=== PATIENT | male | born 1990 | race Two or more races ===

== ENCOUNTER 2020-02-26 14:47 | Outpatient (REF) | payer OTHER, SELFPAY | END 2020-02-26 14:48 | disposition home or self-care (01) | LOC: HO.LAB 14:47 | PROVIDERS: Visit Provider Internal Medicine | DX: Z20.828 Contact with and (suspected) exposure to other viral communicable diseases (principal) | CPT/HCPCS: C9803; U0003 ==

== ENCOUNTER 2020-08-03 16:48 | Outpatient (REF) | payer OTHER, SELFPAY ==
[2020-08-03 17:56] LABS: Hematocrit 42.9 % (42-52); Hemoglobin 14.4 g/dl (14.0-18.0); Mean Corpuscular HGB Conc 33.6 g/dl (31.0-36.0); Mean Corpuscular Hemoglobin 29.1 pg (27.0-33.0); Mean Corpuscular Volume 86.7 fL (80-98); Mean Platelet Volume 9.9 fL (9.4-12.4); Platelet Count 195 X10*3/uL (160-400); Red Blood Count 4.95 X10*6/uL (4.60-5.80); Red Cell Distribution Width 12.5 % (11.0-16.0); White Blood Count 7.2 X10*3/uL (4.8-10.8)
[2020-08-03 18:13] LABS: Alanine Aminotransferase 42 U/L (0-40); Albumin Level 4.3 g/dL (3.5-5.0); Alkaline Phosphatase 69 U/L (39-117); Anion Gap 11 (12-20); Aspartate Amino Transferase 28 U/L (5-37); Bilirubin Direct < 0.2 mg/dL (0.0-0.5); Bilirubin Total 0.5 mg/dL (0.0-1.0); Blood Urea Nitrogen 14 mg/dL (9-16); Calcium 9.5 mg/dL (8.4-10.2); Carbon Dioxide 29 mmol/L (22-29); Chloride 104 mmol/L (96-108); Cholesterol 172 mg/dL; Estimated Glomerular Filt Rate > 60; Glucose Random 71 mg/dL (60-115); HDL Cholesterol 41 mg/dL; LDL Cholesterol Calculated 111 mg/dl; Potassium 4.1 mmol/L (3.3-5.1); Sodium 140 mmol/L (135-145); Total Protein 7.2 g/dL (6.5-8.0); Triglycerides 101 mg/dL
== END 2020-08-03 16:49 | disposition home or self-care (01) ==
LOC: HO.LAB 16:48
PROVIDERS: PCP Internal Medicine; Visit Provider Internal Medicine
DX: Z00.00 Encounter for general adult medical examination without abnormal findings (principal); B35.1 Tinea unguium
CPT/HCPCS: 36415; 80048; 80061; 80076; 85027

== ENCOUNTER 2020-09-14 15:25 | Outpatient (REF) | payer OTHER, SELFPAY | END 2020-09-14 15:26 | disposition home or self-care (01) | LOC: HO.LNP 15:25 | PROVIDERS: Visit Provider Internal Medicine | DX: B35.1 Tinea unguium (principal) | CPT/HCPCS: 87101; 87106 ==

== ENCOUNTER 2021-08-18 17:00 | Outpatient (RCR) | payer OTHER, SELFPAY ==
--- NOTE | 2021-07-06 14:49 | MHC.PT.EP ---
[facility] [place] Office [place] [facility] [place] [facility] [address] Geoff Becker [address] [phone] F: [phone] F: [phone] F: [phone] F: [phone] Physical Therapy Plan of Care Date of Evaluation: Date of Surgery: n/a Diagnosis: low back pain Assessment: Patient is a 31 year old male presenting to PT with complaints of pain in his mid back. Pt reports onset of pain began about 1 month ago due to insidious onset. He presents today with impairments in posture and core strength. 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 Pt expresses senior care goal of reducing pain, and is motivated to work towards this in PT. Clinical presentation today is somewhat unclear as his pain cannot be reproduced on exam and appears to come on randomly unrelated to movements/activity. He denies sx suggesting systemic problem such as recent weight loss, night sweats, night pain, or fever. Pain could be posture related as he does have a physical job and perhaps has impaired lifting mechanics. Therefore we will begin to work on posture and mechanics and if there is no improvements beginning to be made in a couple weeks I will refer him back to his doctor for further assessment and potential imaging. Pt will benefit from skilled PT to address the following problems and impairments noted upon evaluation: posture, core strength, lifting mechanics. These problems limit the patient with the following functional activities: ADLs, work, caring for his daughter. The prescribed treatment plan of care is medically necessary. Co-morbidities of none were identified and taken into considerations of plan of care. Pt was educated on HEP, role of PT, prognosis, POC. Frequency and Duration: The patient will be seen 2 x week x 4 weeks Short Term Goals: Pt will demonstrate improved postural awareness by sitting with biomechanically correct posture without cues throughout session to improve overall postural function in 2 weeks. Pt will demonstrate ability to perform PPT with good TA recruitment for improved core strength in 2 weeks. Skilled Nursing Goals: Pt will demonstrate improved Laura score by 10% in 4 weeks for improved functional mobility. Pt will demonstrate ability to lift with good mechanics in 4 weeks for better tolerance to his work. Treatment Plan: Modalities to reduce pain, spasms and effusion. Manual therapy to restore motion and function. Therapeutic exercise to improve strength and flexibility. Neuromuscular re-education for posture and balance. Therapeutic activities to return to functional activities of daily living. Electronically signed by: Frances Rivera, PT, DPT, ATC Please sign and return to therapist. Thank you for your referral.
--- NOTE | 2021-08-18 17:56 | MHC.PT.DC ---
[facility] [place] Office [place] Office [place] Office [address] Geoff Becker [address] [phone] F: [phone] F: [phone] F: [phone] F: [phone] Physical Therapy Discharge Report Diagnosis: low back pain Date of Surgery: n/a Date of Evaluation: 07/06/21 Date of Discharge: 08/18/21 Treatments to Date: 10 Cancellations to Date: 5 No Shows to Date: 0 Discharge Status: Achieved Goals Improved Function Independent with HEP Discharge Summary: Pt has made good progress since beginning skilled PT. He is rarely experiencing pain at this point and has met/made progress towards all of his goals. 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 Also reminded him to use proper lifting mechanics to prevent any worsening of sx. At this point max benefits of PT have been provided and skilled PT is no longer indicated at this time. Pt is in agreement with d/c today. Electronically signed by: Frances Rivera, PT, DPT, ATC Please sign and return to therapist. Thank you for your referral.
== END 2021-08-18 17:57 | disposition home or self-care (01) ==
LOC: HO.PTCHIC 17:00
PROVIDERS: PCP Internal Medicine; Visit Provider Internal Medicine
DX: M54.50 Low back pain, unspecified (principal)
CPT/HCPCS: 97110; 97140; 97161